=== PATIENT | female | born 1930 | race Caucasian/White ===

== ENCOUNTER 2016-04-08 | Outpatient (CLI) | payer MEDICARE, BC | END 2016-04-08 06:31 | disposition EMS.NT ==

== ENCOUNTER 2016-04-09 | Outpatient (CLI) | payer MEDICARE, BC | END 2016-04-09 05:29 | disposition EMS.NT | DX: R53.1 Weakness (principal) ==

== ENCOUNTER 2016-04-11 06:22 | Outpatient (CLI) | payer MEDICARE, BC | END 2016-04-11 06:23 | disposition home or self-care (01) | DX: R53.81 Other malaise (principal); S99.921A Unspecified injury of right foot, initial encounter; R32 Unspecified urinary incontinence; R11.0 Nausea; W06.XXXA Fall from bed, initial encounter; Z91.81 History of falling; Y93.9 Activity, unspecified; Y92.003 Bedroom of unspecified non-institutional (private) residence as the place of occurrence of the external cause; Y99.9 Unspecified external cause status | CPT/HCPCS: A0425; A0427 ==

== ENCOUNTER 2016-04-11 06:51 | Inpatient (IN) | payer MEDICARE, BC ==
[2016-04-11] MEDS ORDERED: SODIUM CHLORIDE 0.9% 1,000 ML IV ONE (07:46)
[2016-04-11] MEDS ORDERED: ONDANSETRON 4 MG/2 ML VIAL IVP STA (07:54)
[2016-04-11] MEDS ORDERED: ONDANSETRON 4 MG/2 ML VIAL ONE (08:09)
[2016-04-11] MEDS ORDERED: HYDROmorphone 1 MG/ML SYRINGE IVP STA (10:16)
[2016-04-11] MEDS ORDERED: HYDROmorphone 1 MG/ML SYRINGE ONE (10:17)
[2016-04-11] MEDS ORDERED: IBUPROFEN 400 MG TABLET PO PRN (12:35)
[2016-04-11] MEDS ORDERED: ONDANSETRON 4 MG/2 ML VIAL IVP PRN (12:35)
[2016-04-11] MEDS ORDERED: FLUTICASONE HFA 110 MCG INHALER INH SCH (13:00)
[2016-04-11] MEDS: SODIUM CHLORIDE FLUSH 0.9% 10 ML SYRINGE IVP SCH ×2 (14:12→21:06)
[2016-04-11] MEDS ORDERED: IPRATROPIUM/ALBUTEROL 3 ML NEB INH SCH (15:00)
[2016-04-11] MEDS: HYDROmorphone 1 MG/ML SYRINGE IVP PRN (16:21)
[2016-04-11] MEDS: IPRATROPIUM/ALBUTEROL 3 ML NEB INH PRN (17:55)
[2016-04-11] MEDS: BUDESONIDE 0.5 MG/2 ML NEB INH SCH (20:20)
[2016-04-11] MEDS: OXYBUTYNIN 5MG TABLET PO SCH (21:04)
[2016-04-11] MEDS: GABAPENTIN 300 MG CAPSULE PO SCH (21:04)
[2016-04-11] MEDS: ATORVASTATIN 10 MG TABLET PO SCH (21:04)
[2016-04-11] MEDS: WARFARIN 1 MG TABLET PO SCH (21:05)
[2016-04-11] MEDS: METOPROLOL TARTRATE 50 MG TABLET PO SCH (21:05)
[2016-04-12] MEDS: LEVOTHYROXINE 25 MCG TABLET PO SCH (06:31)
[2016-04-12] MEDS: SODIUM CHLORIDE FLUSH 0.9% 10 ML SYRINGE IVP SCH ×3 (06:57→22:20)
[2016-04-12] MEDS: BUDESONIDE 0.5 MG/2 ML NEB INH SCH ×2 (07:59→19:00)
[2016-04-12] MEDS: SODIUM CHLORIDE FLUSH 0.9% 10 ML SYRINGE IVP PRN (08:17)
[2016-04-12] MEDS: HYDROmorphone 1 MG/ML SYRINGE IVP PRN (08:17)
[2016-04-12] MEDS: FLUoxetine 10 MG CAPSULE PO SCH (09:39)
[2016-04-12] MEDS: amLODIPine 5 MG TABLET PO SCH (09:40)
[2016-04-12] MEDS: ASPIRIN EC 81 MG TABLET PO SCH (09:41)
[2016-04-12] MEDS: METOPROLOL TARTRATE 50 MG TABLET PO SCH ×2 (09:41→20:21)
[2016-04-12] MEDS: OXYBUTYNIN 5MG TABLET PO SCH ×2 (09:41→20:21)
[2016-04-12] MEDS: POLYETHYLENE GLYCOL 3350 17 GM PACKET PO SCH (09:41)
[2016-04-12] MEDS: SODIUM CHLORIDE 0.45% 1,000 ML IV SCH (10:55)
[2016-04-12] MEDS: FLUTICASONE NASAL SPRAY NAS SCH (11:03)
[2016-04-12] MEDS ORDERED: HYDROmorphone 1 MG/ML SYRINGE IVP PRN (14:20)
[2016-04-12] MEDS: oxyCOD/ACETAMIN 5 MG/325 MG TABLET PO PRN (16:32)
[2016-04-12] MEDS: IPRATROPIUM/ALBUTEROL 3 ML NEB INH PRN (19:00)
[2016-04-12] MEDS ORDERED: WARFARIN 1 MG TABLET PO SCH (20:00)
[2016-04-12] MEDS: GABAPENTIN 300 MG CAPSULE PO SCH (20:20)
[2016-04-12] MEDS: ATORVASTATIN 10 MG TABLET PO SCH (20:20)
[2016-04-13] MEDS: SODIUM CHLORIDE 0.45% 1,000 ML IV SCH (00:14)
[2016-04-13] MEDS: SODIUM CHLORIDE FLUSH 0.9% 10 ML SYRINGE IVP SCH ×3 (05:58→22:08)
[2016-04-13] MEDS: LEVOTHYROXINE 25 MCG TABLET PO SCH (06:52)
[2016-04-13] MEDS: SODIUM CHLORIDE 0.9% 1,000 ML IV SCH ×2 (07:44→22:04)
[2016-04-13] MEDS: BUDESONIDE 0.5 MG/2 ML NEB INH SCH ×2 (07:49→19:00)
[2016-04-13] MEDS: POLYETHYLENE GLYCOL 3350 17 GM PACKET PO SCH (08:29)
[2016-04-13] MEDS: SENNA 8.6 MG TABLET PO SCH (09:16)
[2016-04-13] MEDS: oxyCOD/ACETAMIN 5 MG/325 MG TABLET PO PRN (09:16)
[2016-04-13] MEDS: ASPIRIN EC 81 MG TABLET PO SCH (09:17)
[2016-04-13] MEDS: FLUoxetine 10 MG CAPSULE PO SCH (09:17)
[2016-04-13] MEDS: amLODIPine 5 MG TABLET PO SCH (09:17)
[2016-04-13] MEDS: OXYBUTYNIN 5MG TABLET PO SCH ×2 (09:17→22:02)
[2016-04-13] MEDS: DOCUSATE SODIUM 250 MG CAPSULE PO SCH (09:17)
[2016-04-13] MEDS: FLUTICASONE NASAL SPRAY NAS SCH (09:18)
[2016-04-13] MEDS ORDERED: FUROSEMIDE 20 MG TABLET PO STA (13:13)
[2016-04-13] MEDS: METOPROLOL TARTRATE 50 MG TABLET PO SCH ×2 (14:17→22:02)
[2016-04-13] MEDS: WARFARIN 1 MG TABLET PO SCH (19:03)
[2016-04-13] MEDS: ATORVASTATIN 10 MG TABLET PO SCH (22:01)
[2016-04-13] MEDS: GABAPENTIN 300 MG CAPSULE PO SCH (22:01)
[2016-04-14] MEDS: SODIUM CHLORIDE FLUSH 0.9% 10 ML SYRINGE IVP SCH ×3 (06:50→21:21)
[2016-04-14] MEDS: LEVOTHYROXINE 25 MCG TABLET PO SCH (06:50)
[2016-04-14] MEDS ORDERED: PHYTONADIONE 10 MG/ML AMP PO ONE (07:30)
[2016-04-14] MEDS: BUDESONIDE 0.5 MG/2 ML NEB INH SCH ×2 (08:06→20:25)
[2016-04-14] MEDS: FLUoxetine 10 MG CAPSULE PO SCH (08:10)
[2016-04-14] MEDS: METOPROLOL TARTRATE 50 MG TABLET PO SCH ×2 (08:10→20:32)
[2016-04-14] MEDS: amLODIPine 5 MG TABLET PO SCH (08:10)
[2016-04-14] MEDS: ASPIRIN EC 81 MG TABLET PO SCH ×2 (08:10→08:46)
[2016-04-14] MEDS: POLYETHYLENE GLYCOL 3350 17 GM PACKET PO SCH (08:13)
[2016-04-14] MEDS: SENNA 8.6 MG TABLET PO SCH (08:13)
[2016-04-14] MEDS: DOCUSATE SODIUM 250 MG CAPSULE PO SCH (08:14)
[2016-04-14] MEDS: OXYBUTYNIN 5MG TABLET PO SCH ×2 (08:14→20:32)
[2016-04-14] MEDS: FLUTICASONE NASAL SPRAY NAS SCH (08:15)
[2016-04-14] MEDS: SODIUM CHLORIDE 0.9% 1,000 ML IV SCH ×2 (08:20→21:59)
[2016-04-14] MEDS: HYDROcod/ACETAM 5/325 MG TABLET PO PRN ×2 (10:47→14:55)
[2016-04-14] MEDS: ATORVASTATIN 10 MG TABLET PO SCH (20:32)
[2016-04-14] MEDS: GABAPENTIN 300 MG CAPSULE PO SCH (20:32)
[2016-04-15] MEDS: SODIUM CHLORIDE FLUSH 0.9% 10 ML SYRINGE IVP SCH ×3 (05:04→20:27)
[2016-04-15] MEDS: LEVOTHYROXINE 25 MCG TABLET PO SCH (06:16)
[2016-04-15] MEDS: BUDESONIDE 0.5 MG/2 ML NEB INH SCH ×2 (07:38→20:30)
[2016-04-15] MEDS: IPRATROPIUM/ALBUTEROL 3 ML NEB INH PRN (07:38)
[2016-04-15] MEDS: POLYETHYLENE GLYCOL 3350 17 GM PACKET PO SCH (08:44)
[2016-04-15] MEDS: OXYBUTYNIN 5MG TABLET PO SCH ×2 (08:46→20:18)
[2016-04-15] MEDS: SENNA 8.6 MG TABLET PO SCH ×3 (08:48→23:55)
[2016-04-15] MEDS: METOPROLOL TARTRATE 50 MG TABLET PO SCH ×2 (08:50→20:18)
[2016-04-15] MEDS: amLODIPine 5 MG TABLET PO SCH (08:50)
[2016-04-15] MEDS: DOCUSATE SODIUM 250 MG CAPSULE PO SCH (08:50)
[2016-04-15] MEDS: FLUoxetine 10 MG CAPSULE PO SCH (08:50)
[2016-04-15] MEDS: FLUTICASONE NASAL SPRAY NAS SCH (08:50)
[2016-04-15] MEDS: SODIUM CHLORIDE 0.9% 1,000 ML IV SCH (10:07)
[2016-04-15] MEDS: HYDROcod/ACETAM 5/325 MG TABLET PO PRN (13:15)
[2016-04-15] MEDS: oxyCOD/ACETAMIN 5 MG/325 MG TABLET PO PRN (16:23)
[2016-04-15] MEDS ORDERED: WARFARIN 2.5 MG TABLET PO SCH (19:00)
[2016-04-15] MEDS: ATORVASTATIN 10 MG TABLET PO SCH (20:18)
[2016-04-15] MEDS: GABAPENTIN 300 MG CAPSULE PO SCH (20:18)
[2016-04-15] MEDS ORDERED: WARFARIN 1 MG TABLET PO SCH (20:30)
[2016-04-16] MEDS: SENNA 8.6 MG TABLET PO SCH ×3 (05:47→20:37)
[2016-04-16] MEDS: LEVOTHYROXINE 25 MCG TABLET PO SCH (05:48)
[2016-04-16] MEDS: SODIUM CHLORIDE FLUSH 0.9% 10 ML SYRINGE IVP SCH ×3 (05:50→20:37)
[2016-04-16] MEDS: IPRATROPIUM/ALBUTEROL 3 ML NEB INH PRN (07:28)
[2016-04-16] MEDS: BUDESONIDE 0.5 MG/2 ML NEB INH SCH ×2 (07:29→18:20)
[2016-04-16] MEDS ORDERED: SODIUM CHLORIDE 0.9% 1,000 ML IV SCH ×2 (08:00)
[2016-04-16] MEDS: SODIUM CHLORIDE FLUSH 0.9% 10 ML SYRINGE IVP PRN (09:23)
[2016-04-16] MEDS: OXYBUTYNIN 5MG TABLET PO SCH ×2 (09:23→20:37)
[2016-04-16] MEDS: LACTULOSE 10 GM /15 ML UDC PO SCH ×2 (09:24→14:05)
[2016-04-16] MEDS: DOCUSATE SODIUM 250 MG CAPSULE PO SCH ×2 (09:24→20:35)
[2016-04-16] MEDS: FLUoxetine 10 MG CAPSULE PO SCH (09:24)
[2016-04-16] MEDS: FLUTICASONE NASAL SPRAY NAS SCH (10:39)
[2016-04-16] MEDS: METOPROLOL TARTRATE 50 MG TABLET PO SCH ×2 (10:40→20:36)
[2016-04-16] MEDS: POLYETHYLENE GLYCOL 3350 17 GM PACKET PO SCH (10:43)
[2016-04-16] MEDS: oxyCOD/ACETAMIN 5 MG/325 MG TABLET PO PRN (11:26)
[2016-04-16] MEDS ORDERED: VANCOMYCIN INJ 1 GM, VANCOMYCIN INJ 500 MG in SODIUM CHLORIDE 0.9% 500 ML IV SCH (14:00)
[2016-04-16] MEDS: WARFARIN 5 MG TABLET PO SCH (14:26)
[2016-04-16] MEDS ORDERED: FUROSEMIDE 40 MG/4 ML VIAL IVP SCH (15:00)
[2016-04-16] MEDS: HYDROcod/ACETAM 5/325 MG TABLET PO PRN (16:49)
[2016-04-16] MEDS ORDERED: MIN OIL/DIMETHICON/COCONUT OIL 92 GM TUBE TOP PRN (19:31)
[2016-04-16] MEDS: GABAPENTIN 300 MG CAPSULE PO SCH (20:36)
[2016-04-16] MEDS: ATORVASTATIN 10 MG TABLET PO SCH (20:37)
[2016-04-17] MEDS: LEVOTHYROXINE 25 MCG TABLET PO SCH (06:20)
[2016-04-17] MEDS: SODIUM CHLORIDE FLUSH 0.9% 10 ML SYRINGE IVP SCH ×3 (06:21→20:55)
[2016-04-17] MEDS: BUDESONIDE 0.5 MG/2 ML NEB INH SCH ×2 (07:15→19:35)
[2016-04-17] MEDS: POLYETHYLENE GLYCOL 3350 17 GM PACKET PO SCH (08:53)
[2016-04-17] MEDS: DOCUSATE SODIUM 250 MG CAPSULE PO SCH ×2 (08:53→20:55)
[2016-04-17] MEDS: OXYBUTYNIN 5MG TABLET PO SCH ×2 (08:54→20:55)
[2016-04-17] MEDS: SENNA 8.6 MG TABLET PO SCH ×2 (08:54→20:55)
[2016-04-17] MEDS: FLUoxetine 10 MG CAPSULE PO SCH (08:54)
[2016-04-17] MEDS: METOPROLOL TARTRATE 50 MG TABLET PO SCH ×2 (08:56→21:00)
[2016-04-17] MEDS: FLUTICASONE NASAL SPRAY NAS SCH (08:56)
[2016-04-17] MEDS: oxyCOD/ACETAMIN 5 MG/325 MG TABLET PO PRN (09:04)
[2016-04-17] MEDS ORDERED: FUROSEMIDE 40 MG/4 ML VIAL IVP ONE (11:30)
[2016-04-17] MEDS: FUROSEMIDE 40 MG/4 ML VIAL IVP SCH (11:40)
[2016-04-17] MEDS ORDERED: metOLazone 2.5 MG TABLET PO SCH (12:00)
[2016-04-17] MEDS: WARFARIN 5 MG TABLET PO SCH (14:57)
[2016-04-17] MEDS: LIDOCAINE PATCH 5% TOP PRN (18:52)
[2016-04-17] MEDS: ATORVASTATIN 10 MG TABLET PO SCH (20:55)
[2016-04-17] MEDS: GABAPENTIN 300 MG CAPSULE PO SCH (20:55)
[2016-04-18] MEDS: FUROSEMIDE 40 MG/4 ML VIAL IVP SCH ×3 (00:08→23:49)
[2016-04-18] MEDS: SODIUM CHLORIDE FLUSH 0.9% 10 ML SYRINGE IVP PRN (00:09)
[2016-04-18] MEDS: SODIUM CHLORIDE FLUSH 0.9% 10 ML SYRINGE IVP SCH ×3 (06:01→20:34)
[2016-04-18] MEDS: LEVOTHYROXINE 25 MCG TABLET PO SCH (06:01)
[2016-04-18] MEDS: BUDESONIDE 0.5 MG/2 ML NEB INH SCH ×2 (07:52→19:40)
[2016-04-18] MEDS: DOCUSATE SODIUM 250 MG CAPSULE PO SCH ×2 (09:01→20:33)
[2016-04-18] MEDS: METOPROLOL TARTRATE 50 MG TABLET PO SCH ×2 (09:01→20:33)
[2016-04-18] MEDS: OXYBUTYNIN 5MG TABLET PO SCH ×2 (09:01→20:33)
[2016-04-18] MEDS: FLUoxetine 10 MG CAPSULE PO SCH (09:01)
[2016-04-18] MEDS: SENNA 8.6 MG TABLET PO SCH ×2 (09:01→20:33)
[2016-04-18] MEDS: POLYETHYLENE GLYCOL 3350 17 GM PACKET PO SCH (09:02)
[2016-04-18] MEDS: FLUTICASONE NASAL SPRAY NAS SCH (09:07)
[2016-04-18] MEDS ORDERED: WARFARIN 5 MG TABLET PO SCH (13:29)
[2016-04-18] MEDS: LIDOCAINE PATCH 5% TOP PRN ×2 (13:42→13:43)
[2016-04-18] MEDS ORDERED: LIDOCAINE PATCH 5% TOP PRN (14:00)
[2016-04-18] MEDS: GABAPENTIN 300 MG CAPSULE PO SCH (20:32)
[2016-04-18] MEDS: ATORVASTATIN 10 MG TABLET PO SCH (20:32)
[2016-04-19] MEDS: LEVOTHYROXINE 25 MCG TABLET PO SCH (06:21)
[2016-04-19] MEDS: SODIUM CHLORIDE FLUSH 0.9% 10 ML SYRINGE IVP SCH (06:22)
[2016-04-19] MEDS: FLUoxetine 10 MG CAPSULE PO SCH (08:04)
[2016-04-19] MEDS: METOPROLOL TARTRATE 50 MG TABLET PO SCH (08:04)
[2016-04-19] MEDS: OXYBUTYNIN 5MG TABLET PO SCH (08:05)
[2016-04-19] MEDS: POLYETHYLENE GLYCOL 3350 17 GM PACKET PO SCH (08:05)
[2016-04-19] MEDS: DOCUSATE SODIUM 250 MG CAPSULE PO SCH (08:05)
[2016-04-19] MEDS: SENNA 8.6 MG TABLET PO SCH (08:05)
[2016-04-19] MEDS: FLUTICASONE NASAL SPRAY NAS SCH (08:07)
[2016-04-19] MEDS: BUDESONIDE 0.5 MG/2 ML NEB INH SCH (09:08)
[2016-04-19] MEDS ORDERED: POTASSIUM CHLORIDE 20 MEQ TABLET PO SCH (12:00)
[2016-04-19] MEDS: FUROSEMIDE 40 MG/4 ML VIAL IVP SCH (12:29)
[2016-04-19] MEDS ORDERED: WARFARIN 1 MG TABLET PO SCH ×2 (14:00)
== END 2016-04-19 13:25 | DRG 305 ==
PROC: 3E0U33Z Introduction of Anti-inflammatory into Joints, Percutaneous Approach (ICD-10-PCS; principal; 2016-04-15)
PROC: 3E0U3BZ Introduction of Anesthetic Agent into Joints, Percutaneous Approach (ICD-10-PCS; principal; 2016-04-15)
DX: I13.10 Hypertensive heart and chronic kidney disease without heart failure, with stage 1 through stage 4 chronic kidney disease, or unspecified chronic kidney disease (principal); N17.9 Acute kidney failure, unspecified; E87.1 Hypo-osmolality and hyponatremia; M25.061 Hemarthrosis, right knee; I48.91 Unspecified atrial fibrillation; N30.01 Acute cystitis with hematuria; I10 Essential (primary) hypertension; F41.9 Anxiety disorder, unspecified; N18.9 Chronic kidney disease, unspecified; I48.2 Chronic atrial fibrillation; Z79.01 Long term (current) use of anticoagulants; W19.XXXA Unspecified fall, initial encounter; E86.0 Dehydration; Y93.9 Activity, unspecified; Y92.002 Bathroom of unspecified non-institutional (private) residence as the place of occurrence of the external cause; Y99.9 Unspecified external cause status; J44.9 Chronic obstructive pulmonary disease, unspecified; M17.11 Unilateral primary osteoarthritis, right knee; R53.1 Weakness; E66.01 Morbid (severe) obesity due to excess calories; Z68.35 Body mass index [BMI] 35.0-35.9, adult; B95.7 Other staphylococcus as the cause of diseases classified elsewhere; S92.511A Displaced fracture of proximal phalanx of right lesser toe(s), initial encounter for closed fracture; S62.334A Displaced fracture of neck of fourth metacarpal bone, right hand, initial encounter for closed fracture; K59.00 Constipation, unspecified; F32.9 Major depressive disorder, single episode, unspecified; E03.9 Hypothyroidism, unspecified; Z79.82 Long term (current) use of aspirin; Z79.899 Other long term (current) drug therapy; Z91.81 History of falling; Z74.01 Bed confinement status; Z87.891 Personal history of nicotine dependence

== ENCOUNTER 2016-04-19 13:31 | Outpatient (CLI) | payer MEDICARE, BC | END 2016-04-19 13:32 | DX: S92.901D Unspecified fracture of right foot, subsequent encounter for fracture with routine healing (principal) | CPT/HCPCS: A0425; A0429 ==